=== PATIENT | female | born 1985 | race Caucasian/White ===

== ENCOUNTER 2022-03-04 23:14 | Emergency (ER) | payer MEDICAID, SELFPAY ==
[2022-03-04 23:32] VITALS: BP 119/82; BP 120/80; PULSE 80; RESP 18; TEMP 37; O2SAT 100; O2SAT 99; BMI 26.6
[2022-03-04 23:39] VITALS: BP 118/76; PULSE 80; RESP 18; TEMP 37; O2SAT 99
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
--- NOTE | 2022-03-05 01:48 | PC.NURSE ---
This RN contacted [employer] re: a ride home for pt. Pt. states that she does not have a car, and has no family or friends to give her a ride home from [facility] to [place]. [employer] [facility] [employer] states that they may be able to give pt. a ride home and will call us back to let us know.
== END 2022-03-05 03:25 | disposition home or self-care (01) ==
PROVIDERS: Emergency Provider Emergency Medicine; PCP Family Medicine
DX: F32.A Depression, unspecified (principal); Z72.89 Other problems related to lifestyle; Z63.0 Problems in relationship with spouse or partner
CPT/HCPCS: 99283; 99284